=== PATIENT | male | born 1960 | race Caucasian/White ===

== ENCOUNTER 2024-10-29 12:01 | Outpatient (OUT) | payer OTHER, SELFPAY ==
[2024-10-29 12:26] LABS: Estimated GFR (African America >60 (>=60 mL/min/1.73m^2); Estimated GFR (Non-African Ame 57 (>=60 mL/min/1.73m^2)
== END 2024-10-29 12:02 | disposition home or self-care (01) ==
LOC: LAB 12:01
PROVIDERS: PCP Family Medicine; Visit Provider Physician Assistant
DX: N41.9 Inflammatory disease of prostate, unspecified (principal)
CPT/HCPCS: 36415; 82565; 84520